=== PATIENT | male | born 1965 | race Caucasian/White ===

== ENCOUNTER 2020-02-12 18:41 | Emergency (ER) | payer SELFPAY ==
[~2020-02-12] VITALS: Ht 177.8 cm; Wt 104.5 kg
[2020-02-12 18:45] VITALS: Ht 177.8 cm; Wt 104.5 kg
[2020-02-12] MEDS ORDERED: ZYLOPRIM300 MG (18:46)
[2020-02-12] MEDS ORDERED: ASPIRIN81 MG PO (18:59)
[2020-02-12] MEDS ORDERED: ZOVIRAX200 MG PO (18:59)
[2020-02-12] MEDS ORDERED: ZYLOPRIM100 MG PO (19:00)
[2020-02-12] MEDS ORDERED: AMBIEN5 MG PO (19:00)
[2020-02-12] MEDS ORDERED: MAG-OX 400 MG400 MG PO (19:00)
[2020-02-12] MEDS ORDERED: DIFLUCAN200 MG PO (19:01)
[2020-02-12] MEDS ORDERED: GLUCOTROL 5 MG T5 MG PO (19:01)
[2020-02-12] MEDS ORDERED: GLUCOPHAGE1000 MG PO (19:01)
[2020-02-12] MEDS ORDERED: OMEPRAZOLE20 M1 PO (19:02)
[2020-02-12] MEDS ORDERED: LISINOPRIL10 MG (19:02)
[2020-02-12] MEDS ORDERED: K-TAB10 MEQ (19:03)
[2020-02-12] MEDS ORDERED: OS-CAL500 MG (19:03)
[2020-02-12] MEDS ORDERED: INVANZ 1 GM/NS 11 G1 (19:04)
[2020-02-12] MEDS ORDERED: MACROBID100 MG (19:04)
[2020-02-12] MEDS ORDERED: VITAMIN D2000 UNI1 (19:04)
[2020-02-12 19:20] LABS: HEMATOCRIT 21.2 % (42.0-54.0); MCH 33.2 pg (26.0-34.0); MCHC 34.9 g/dL (31.0-37.0); MCV 95.1 fL (80.0-100.0); RBC 2.23 10x6/uL (4.20-6.10); RDW 15.4 % (11.5-14.5)
[2020-02-12 19:22] LABS: HEMOGLOBIN 7.4 g/dL (13.5-17.5); PLATELET COUNT 13 10x3/uL (130-400); WBC 1.4 10x3/uL (4.8-10.8)
[2020-02-12 19:31] LABS: APTT 32.2 SECONDS (22.8-39.4); INR 1.2 (0.85-1.17); PROTIME 15.1 SECONDS (11.6-15.0)
[2020-02-12 19:32] LABS: D-DIMER-QUANTITATIVE 1.49 ug/mLFEU (0.20-0.54)
[2020-02-12 19:37] LABS: CALC OSMOLALITY 274 mosm/kg (275-300); CALCIUM 8.3 mg/dL (8.5-10.1); CARBON DIOXIDE 23.3 mmol/L (21.0-32.0); CHLORIDE - SERUM 102 mmol/L (98-107); CREATININE - SERUM 1.2 mg/dL (0.6-1.3); GLUCOSE 210 mg/dL (74-106); SODIUM 134 mmol/L (136-145); UREA NITROGEN 14 mg/dL (7-18); eGFR NON AFRICAN AMERICAN 66 mL/min (90-120)
[2020-02-12 19:44] LABS: HYPOCHROMASIA 1+; LYMPHOCYTES 64 % (15-50); MONOCYTES 10 % (2-11); NEUTROPHILS 26 % (40-80); PLATELET ESTIMATE DECREASED
[2020-02-12 20:00] LABS: ALKALINE PHOSPHATASE 76 U/L (30-120); ALT (SGPT) 11 U/L (10-68); BILIRUBIN - TOTAL 0.87 mg/dL (0.2-1.3); CREATINE KINASE 66 UL (21-232); MAGNESIUM - SERUM 1.7 mg/dL (1.8-2.4)
[2020-02-12 20:09] LABS: TROPONIN-I < 0.017 ng/mL (0.000-0.060)
[2020-02-12 21:13] LABS: BILIRUBIN NEGATIVE (NEGATIVE); KETONE NEGATIVE (NEGATIVE); NITRITE NEGATIVE (NEGATIVE); UROBILINOGEN 2 mg/dL (< 2)
[2020-02-12 23:59] VITALS: BP 122/80
== END 2020-02-13 02:00 | disposition other institution (70) ==
LOC: D.ER 18:41
PROVIDERS: Family Medicine
DX: R07.9 Chest pain, unspecified (principal); R79.1 Abnormal coagulation profile; R74.02 Elevation of levels of lactic acid dehydrogenase [LDH]; D46.9 Myelodysplastic syndrome, unspecified; D70.9 Neutropenia, unspecified; D69.6 Thrombocytopenia, unspecified; E11.9 Type 2 diabetes mellitus without complications; Z79.84 Long term (current) use of oral hypoglycemic drugs; I10 Essential (primary) hypertension